=== PATIENT | female | born 1940 | race Hispanic/Latino ===

== ENCOUNTER 2016-12-22 16:20 | Emergency (ER) | payer MEDICAID, MEDICARE, OTHER ==
[2016-12-22 16:25] VITALS: RESP 18; TEMP 98.5
--- NOTE | 2016-12-22 17:08 | ED PDOC ---
Syncope/Near Syncope/Dizziness Time Seen by Provider: 12/22/16 16:53 Chief Complaint (Nursing): Dizziness/Lightheaded Chief Complaint (Provider): dizziness History Per: Patient, EMS Additional Complaint(s): 76-year-old female with history of diabetes and hypertension presents to emergency department with dizziness and nausea that started earlier today. Patient was sitting outside in the sun when she started to felt dizzy. Patient went into her home and splashed water on her face which made her feel better. She then drank a Pepsi and dizziness resolved. Patient states prior to drinking a Pepsi she only ate a buttered roll today. Upon arrival she feels slightly dizzy and slightly nauseous with mild headache. She denies any facial numbness, denies any numbness to upper or lower extremities. No chest pain, shortness of breath or abdominal pain. She denies vomiting. Past Medical History Reviewed: Historical Data, Nursing Documentation, Vital Signs Vital Signs: Last Vital Signs Temp 98.5 F 12/22/16 16:23 Pulse 100 H 12/22/16 16:23 Resp 18 12/22/16 16:23 BP 153/59 H 12/22/16 16:23 Pulse Ox 97 12/22/16 16:23 - Medical History PMH: COPD, Diabetes, HTN, Hypercholesterolemia - Surgical History Surgical History: Cholecystectomy, Hernia Repair Other surgeries: repair of AAA, vaginal hysterectomy - Family History Family History: States: No Known Family Hx - Social History Current smoker - smoking cessation education provided: Yes Alcohol: None Drugs: Denies - Home Medications Home Medications: Ambulatory Orders Medication Instructions Recorded Albuterol HFA [Ventolin HFA 90 1 puff INH PRN PRN 12/23/14 mcg/actuation (8 g)] Clopidogrel [Plavix] 75 mg PO DAILY 12/23/14 Cyclobenzaprine HCl [Flexeril] 10 mg PO TID PRN #15 tab 12/23/14 Fluticasone/Salmeterol 250/50 1 puff INH PRN PRN 12/23/14 [Advair Diskus 250/50] Gabapentin [Neurontin] 300 mg PO DAILY 12/23/14 Linagliptin [Tradjenta] 5 mg PO DAILY 12/23/14 Losartan/Hydrochlorothiazide 1 tab PO DAILY 12/23/14 [Losartan Potassium-Hydrochlorothiazide 12.5 M] MetFORMIN [glucoPHAGE] 1 tab PO DAILY 12/23/14 Rosuvastatin Calcium [Crestor] 10 mg PO DAILY 12/23/14 Sodium Bisulfate [Sodium Bisulfate 12/23/14 Monohydrate] traMADol [Ultram] 50 mg PO Q6 #16 tab 12/23/14 Moxifloxacin Hydrochloride [Avelox] 400 mg PO QAM #9 tab 06/17/15 Oxycodone HCl/Acetaminophen 1 tab PO Q6 PRN #10 tab 06/17/15 [Percocet 325 mg-5 mg] Prednisone 12 tab-cap PO QAM #15 tab 06/17/15 Promethazine/Phenyleph/Codeine 2 tsp PO Q6 PRN #0 syr 06/17/15 [Promethazine Vc W/ Codeine 120 ml] Oseltamivir [Tamiflu] 75 mg PO BID #10 cap 09/06/15 Azithromycin [Zithromax Z-Darek] 250 mg PO DAILY #4 tab 09/14/15 Amoxicillin/Potassium Clav 1 tab PO TID #30 tab 03/22/16 [Augmentin 500 mg-125 mg] Methylprednisolone [Medrol Dose 4 mg PO DAILY #21 tab 03/22/16 Pack (21 tabs)] - Allergies Allergies/Adverse Reactions: Allergies Allergy/AdvReac Type Severity Reaction Status Date / Time No Known Allergies Allergy Verified 12/22/16 16:22 Review of Systems ROS Statement: Except As Marked, All Systems Reviewed And Found Negative Constitutional: Negative for: Fever, Chills, Weakness Cardiovascular: Negative for: Chest Pain, Palpitations Respiratory: Positive for: Cough (chronic). Negative for: Shortness of Breath, Hemoptysis, SOB with Exertion, Wheezing Gastrointestinal: Positive for: Nausea. Negative for: Vomiting, Abdominal Pain , Diarrhea Genitourinary Female: Negative for: Dysuria Neurological: Positive for: Headache (slight), Dizziness. Negative for: Weakness, Numbness, Incoordination, Change in Speech, Confusion, Seizures, Altered Mental Status Physical Exam - Reviewed Nursing Documentation Reviewed: Yes Vital Signs Reviewed: Yes - Physical Exam Appears: Positive for: Well, Non-toxic, No Acute Distress Head Exam: Positive for: ATRAUMATIC, NORMAL INSPECTION Skin: Negative for: Rash Eye Exam: Positive for: Normal appearance, EOMI, PERRL Neck: Positive for: Normal Cardiovascular/Chest: Positive for: Regular Rate, Rhythm Respiratory: Positive for: Normal Breath Sounds. Negative for: Wheezing, Respiratory Distress Gastrointestinal/Abdominal: Positive for: Soft. Negative for: Tenderness, Distended, Guarding, Rebound Back: Negative for: L CVA Tenderness, R CVA Tenderness Extremity: Negative for: Pedal Edema Neurologic/Psych: Positive for: Alert, filenet p8 developer II-XII (grossly intact), Oriented. Negative for: Motor/Sensory Deficits, Aphasia, Facial Droop - Laboratory Results Result Diagrams: 12/22/16 17:10 12/22/16 17:10 - ECG Interpretation Of ECG: NSR 94 bpm, no acute finding, reviewed by PA and ED attending O2 Sat by Pulse Oximetry: 97 Pulse Ox Interpretation: Normal - Other Rad CXR X-Ray: Interpreted by Me, Viewed By Me X-Ray Interpretation: Atelectasis, scarring, no acute findings CT head X-Ray: Read By Radiologist X-Ray Interpretation: no acute finding Medical Decision Making Medical Decision Makin76 year old with dizziness and nausea x 1 day Plan: EKG CT head CXR CBC Trop CMP IVF IV zofran PO metformin - fingerstick upon arrival is 266. Patient is supposed to take metformin daily but she admits to not taking medication for the past 4 days. Repeat fingerstick after metformin dose - 130 Patient states the dizziness has resolved completely. She feels much better and would like to go home. Patient aware of all diagnostic testing results, all questions answered. Patient was advised take all meds every day and to not skip doses. She was also counseled regarding smoking cessation and need for follow up with PMD. Patient also aware she can RTED at any time if acutely worse. Disposition - Clinical Impression Clinical Impression: Hyperglycemia, Dizziness - Patient ED Disposition Is Patient to be Admitted: No Counseled Patient/Family Regarding: Studies Performed, Diagnosis, Need For Followup - Disposition Referrals: Shaik Murray MD [Family Provider] - Disposition: Routine/Home Disposition Time: 19:48 Condition: STABLE Additional Instructions: Take all of your medications daily, do not skip doses of any meds. Drink plenty of fluids. Stop smoking. Follow-up Saturday with your doctor or return any time if acutely worse. Instructions: Diabetic Hyperglycemia (ED), Dizziness (ED)
[2016-12-22] MEDS ORDERED: Sodium Chloride 0.9% 1,000 ML IV STA (17:09)
[2016-12-22 17:34] LABS: BASO # 0.1 K/uL (0.0-0.2); BASO % 0.8 % (0.0-2.0); EOS # 0.1 K/uL (0.0-0.7); EOS % 1.2 % (0.0-4.0); HEMATOCRIT 40.8 % (34.0-47.0); LYMPH # 2.5 K/uL (1.0-4.3); LYMPH % 24.5 % (20.0-40.0); MEAN CELL VOLUME 89.1 fl (81.0-99.0); MEAN CORPUSCULAR HEMOGLOBIN 29.6 pg (27.0-31.0); MEAN CORPUSCULAR HGB CONC 33.3 g/dL (33.0-37.0); MEAN PLATELET VOLUME 9.6 fl (7.2-11.7); MONO # 0.9 K/uL (0.0-0.8); MONO % 9.3 % (0.0-10.0); NEUT # 6.5 K/uL (1.8-7.0); NEUT % 64.2 % (50.0-75.0); RED CELL DISTRIBUTION WIDTH 13.6 % (11.5-14.5); WHITE BLOOD COUNT 10.1 K/uL (4.8-10.8)
[2016-12-22 17:44] LABS: ALB/GLOB RATIO 1.4 (1.0-2.1); ALKALINE PHOSPHATASE 70 U/L (38-126); ALT/SGPT 34 U/L (9-52); AST/SGOT 19 U/L (14-36); BILIRUBIN,TOTAL 0.5 mg/dl (0.2-1.3); BLOOD UREA NITROGEN 24 mg/dl (7-17); CALCIUM 9.7 mg/dL (8.4-10.2); CARBON DIOXIDE 25 mmol/L (22-30); CHLORIDE 103 mmol/L (98-107); GFR AFRICAN-AMERICAN > 60; GLUCOSE,RANDOM 239 mg/dL (65-105); POTASSIUM 3.8 MMOL/L (3.6-5.0); SODIUM 139 mmol/l (132-148); TOTAL PROTEIN 7.4 G/DL (6.3-8.2)
[2016-12-22 18:33] VITALS: BP 130/59; PULSE 81
[2016-12-22 19:06] LABS: RBC URINE 2 /hpf (0-3); URINE BACTERIA RARE (<OCC); URINE BILIRUBIN NEGATIVE (NEGATIVE); URINE BLOOD NEGATIVE (NEGATIVE); URINE COLOR YELLOW (YELLOW); URINE GLUCOSE (UA) NEG (Normal); URINE KETONE NEGATIVE (NEGATIVE); URINE LEUKOCYTE ESTERASE TRACE Leu/uL (Negative); URINE PROTEIN NEGATIVE (NEGATIVE); URINE UROBILINOGEN 0.2-1.0 mg/dL (0.2-1.0); WBC URINE 2 /hpf (0-5)
[2016-12-22 19:34] VITALS: O2SAT 97
--- NOTE | 2016-12-23 10:58 | RAD ---
HISTORY: clearance COMPARISON: Comparison chest 03/22/2016 FINDINGS: LUNGS: Hyperinflation ; rule out underlying COPD or emphysema. . Coarsened interstitial markings. Findings may represent sequela of reactive/inflammatory airway disease however element of underlying chronic interstitial disease suspected as well. . Mild bibasilar atelectasis and or scarring changes. Minor biapical pleural thickening. PLEURA: No significant pleural effusion identified, no pneumothorax apparent. CARDIOVASCULAR: Heart size upper limits of normal. OSSEOUS STRUCTURES: Multiple old healed left posterolateral rib fractures again noted VISUALIZED UPPER ABDOMEN: Normal. OTHER FINDINGS: None. IMPRESSION: Hyperinflation ; rule out underlying COPD or emphysema. . Coarsened interstitial markings. Findings may represent sequela of reactive/inflammatory airway disease however element of underlying chronic interstitial disease suspected as well. . . Mild bibasilar atelectasis and or scarring changes. Minor biapical pleural thickening.
--- NOTE | 2016-12-23 11:58 | CT ---
PROCEDURE: CT HEAD WITHOUT CONTRAST. HISTORY: dizziness COMPARISON: Comparison made with prior CT scan of the brain dated 06/30/2009. . TECHNIQUE: Axial computed tomography images were obtained through the head/brain without intravenous contrast. Radiation dose: Total exam DLP = 1035.61 mGy-cm. This CT exam was performed using one or more of the following dose reduction techniques: Automated exposure control, adjustment of the mA and/or kV according to patient size, and/or use of iterative reconstruction technique. FINDINGS: HEMORRHAGE: No acute parenchymal, subarachnoid or extra-axial hemorrhage. . Thin extra-axial density in the right frontal region best seen on axial series 4, image 26 probably represents a cortical surface draining vein. . BRAIN: Mild chronic periventricular white matter ischemic changes again seen extending slightly into the deep white matter both cerebral hemispheres. Mild generalized volume loss. No obvious parenchymal nor extra-axial mass or collection seen on this noncontrast study. Mild vascular calcifications are present. VENTRICLES: No evidence of obstructive hydrocephalus CALVARIUM: There are no acute calvarial fracture seen. PARANASAL SINUSES: Frontal sinuses are hypoplastic/ underpneumatized Remaining visualized paranasal sinuses are well-developed and currently well-aerated. No fluid levels seen to suggest acute sinusitis or hemorrhage. Mild mucosal thickening noted within a few ethmoid air cells. . MASTOID AIR CELLS: Unremarkable as visualized. No inflammatory changes. OTHER FINDINGS: Changes of right and probably left-sided cataract surgery. Clinical correlation recommended IMPRESSION: No acute intracranial hemorrhage. Mild chronic periventricular white matter ischemic changes. Mild generalized volume loss.
--- NOTE | 2016-12-25 10:38 | CARD ---
APPROVED REPORT EKG Measurement Heart [id number] <Conclusion> Normal sinus rhythm Possible Left atrial enlargement Septal infarct, age undetermined Abnormal ECG
== END 2016-12-22 20:02 | disposition home or self-care (01) ==
LOC: H.ER 16:20
DX: E11.65 Type 2 diabetes mellitus with hyperglycemia (principal); E78.00 Pure hypercholesterolemia, unspecified; I10 Essential (primary) hypertension; J44.9 Chronic obstructive pulmonary disease, unspecified; Z79.84 Long term (current) use of oral hypoglycemic drugs
CPT/HCPCS: 70450; 71010; 80053; 81003; 82948; 84484; 85025; 87086; 96374; 99285; J2405; J7040

== ENCOUNTER 2017-07-06 13:40 | Emergency (ER) | payer MEDICAID, OTHER ==
[2017-07-06 13:50] VITALS: RESP 18
[2017-07-06 14:53] LABS: BASO # 0.1 K/uL (0.0-0.2); BASO % 0.9 % (0.0-2.0); EOS # 0.2 K/uL (0.0-0.7); EOS % 1.9 % (0.0-4.0); HEMOGLOBIN 13.7 g/dL (12.0-16.0); LYMPH # 2.2 K/uL (1.0-4.3); MEAN CELL VOLUME 92.9 fl (81.0-99.0); MEAN CORPUSCULAR HEMOGLOBIN 30.3 pg (27.0-31.0); MEAN CORPUSCULAR HGB CONC 32.5 g/dL (33.0-37.0); MEAN PLATELET VOLUME 8.7 fl (7.2-11.7); MONO # 0.6 K/uL (0.0-0.8); MONO % 7.1 % (0.0-10.0); NEUT # 5.8 K/uL (1.8-7.0); NEUT % 65.1 % (50.0-75.0); RBC 4.53 Mil/uL (3.80-5.20); RED CELL DISTRIBUTION WIDTH 13.8 % (11.5-14.5); WHITE BLOOD COUNT 8.9 K/uL (4.8-10.8)
--- NOTE | 2017-07-06 14:58 | RAD ---
HISTORY: cough congestion COMPARISON: 12/22/2016 TECHNIQUE: Chest PA and lateral FINDINGS: LUNGS: Mild diffuse chronic interstitial change and hyperinflation are noted. These are unchanged. Chronic left rib fractures are appreciated and stable. No new infiltrate is seen. PLEURA: No significant pleural effusion identified. No pneumothorax apparent. CARDIOVASCULAR: Heart is unchanged in size. Aorta is also stable. OSSEOUS STRUCTURES: No significant abnormalities. VISUALIZED UPPER ABDOMEN: Normal. OTHER FINDINGS: None. IMPRESSION: No evidence of new alveolar infiltrate or CHF. Mild chronic emphysematous and interstitial changes.
[2017-07-06 15:01] LABS: BLOOD UREA NITROGEN 11 mg/dl (7-17); CALCIUM 9.6 mg/dL (8.4-10.2); GFR AFRICAN-AMERICAN > 60; GFR NON-AFRICAN AMERICAN > 60
--- NOTE | 2017-07-06 15:06 | ED PDOC ---
HPI: CCC, URI, Sore Throat Time Seen by Provider: 07/06/17 14:01 Chief Complaint (Nursing): Flu-like Symptoms Chief Complaint (Provider): Dry Cough, Congestion, Body Aches History Per: Patient History/Exam Limitations: no limitations Onset/Duration Of Symptoms: Days (x2) Current Symptoms Are (Timing): Still Present Location Of Pain: None Sick Contacts (Context): None Associated Symptoms: denies: Fever, Chills Ear Symptoms: Bilateral: None Additional Complaint(s): 77 year old female with a past medical history of hypertension chronic obstructive pulmonary disease, deep vein thrombosis and diabetes presents to the ED with dry cough, congestion and body aches x2 days. The patient reports that her cough is dry. She states that she also has been wheezing and has been using a nebulizer treatment (advere). Denies chest pain, shortness of breath, difficulty breathing, fever. The patient goes on to sate that she has chronic neuropathy for which she was prescribed tramadol. She states she is not compliant with her medication because it offers her no relief. PMD: Dr. Murray Past Medical History Reviewed: Historical Data, Nursing Documentation, Vital Signs, Unable To Obtain Vital Signs: Last Vital Signs Temp 97.4 F L 07/06/17 13:46 Pulse 87 07/06/17 13:46 Resp 18 07/06/17 13:46 BP 179/73 H 07/06/17 13:46 Pulse Ox 99 07/06/17 15:17 - Medical History PMH: Asthma, Bronchitis, COPD, Diabetes, HTN, Hypercholesterolemia - Surgical History Surgical History: Cholecystectomy, Hernia Repair Other surgeries: multiple abdominal surgeries - Family History Family History: States: Unknown Family Hx - Social History Current smoker - smoking cessation education provided: Yes (Heavy Smoker > 10 Cigarettes Daily) Ex-Smoker (has not smoked in the last 12 months): Yes Alcohol: None Drugs: Denies - Home Medications Home Medications: Ambulatory Orders Medication Instructions Recorded Clopidogrel [Plavix] 75 mg PO DAILY 12/23/14 Cyclobenzaprine HCl [Flexeril] 10 mg PO TID PRN #15 tab 12/23/14 Fluticasone/Salmeterol 250/50 1 puff INH PRN PRN 12/23/14 [Advair Diskus 250/50] Gabapentin [Neurontin] 300 mg PO DAILY 12/23/14 Linagliptin [Tradjenta] 5 mg PO DAILY 12/23/14 Losartan/Hydrochlorothiazide 1 tab PO DAILY 12/23/14 [Losartan Potassium-Hydrochlorothiazide 12.5 M] MetFORMIN [glucoPHAGE] 1 tab PO DAILY 12/23/14 Rosuvastatin Calcium [Crestor] 10 mg PO DAILY 12/23/14 Sodium Bisulfate [Sodium Bisulfate 12/23/14 Monohydrate] traMADol [Ultram] 50 mg PO Q6 #16 tab 12/23/14 Moxifloxacin Hydrochloride [Avelox] 400 mg PO QAM #9 tab 06/17/15 Oxycodone HCl/Acetaminophen 1 tab PO Q6 PRN #10 tab 06/17/15 [Percocet 325 mg-5 mg] Prednisone 12 tab-cap PO QAM #15 tab 06/17/15 Promethazine/Phenyleph/Codeine 2 tsp PO Q6 PRN #0 syr 06/17/15 [Promethazine Vc W/ Codeine 120 ml] Oseltamivir [Tamiflu] 75 mg PO BID #10 cap 09/06/15 Azithromycin [Zithromax Z-Darek] 250 mg PO DAILY #4 tab 09/14/15 Amoxicillin/Potassium Clav 1 tab PO TID #30 tab 03/22/16 [Augmentin 500 mg-125 mg] Methylprednisolone [Medrol Dose 4 mg PO DAILY #21 tab 03/22/16 Pack (21 tabs)] Albuterol HFA [Ventolin HFA 90 1 puff INH PRN PRN #1 inhaler 07/06/17 mcg/actuation (8 g)] oxyCODONE/Acetaminophen [Percocet 1 ea PO Q6 PRN #6 tab 07/06/17 5/325 mg Tab] - Allergies Allergies/Adverse Reactions: Allergies Allergy/AdvReac Type Severity Reaction Status Date / Time No Known Allergies Allergy Verified 12/22/16 16:22 Review of Systems ROS Statement: Except As Marked, All Systems Reviewed And Found Negative Constitutional: Positive for: Other (body aches). Negative for: Fever ENT: Positive for: Nose Congestion Cardiovascular: Positive for: Other (denies dificulty breathing). Negative for : Chest Pain Respiratory: Positive for: Cough (dry), Wheezing Physical Exam - Reviewed Nursing Documentation Reviewed: Yes Vital Signs Reviewed: Yes - Physical Exam Appears: Positive for: Non-toxic, No Acute Distress Head Exam: Positive for: ATRAUMATIC, NORMAL INSPECTION, NORMOCEPHALIC Skin: Positive for: Normal Color, Warm, Dry. Negative for: Rash Eye Exam: Positive for: Normal appearance, EOMI, PERRL. Negative for: Nystagmus ENT: Positive for: Normal ENT Inspection. Negative for: Nasal Congestion, Tonsillar Exudate, Tonsillar Swelling Neck: Positive for: Normal, Painless ROM, Supple Cardiovascular/Chest: Positive for: Regular Rate, Rhythm, Chest Non Tender. Negative for: Tachycardia Respiratory: Positive for: Normal Breath Sounds. Negative for: Wheezing, Respiratory Distress Gastrointestinal/Abdominal: Positive for: Normal Exam, Bowel Sounds, Soft. Negative for: Tenderness, Guarding, Rebound Back: Positive for: Normal Inspection. Negative for: L CVA Tenderness, R CVA Tenderness Extremity: Positive for: Normal ROM. Negative for: Tenderness, Deformity, Swelling Neurologic/Psych: Positive for: Alert, Oriented, Gait - Laboratory Results Result Diagrams: 07/06/17 14:40 07/06/17 14:40 - ECG O2 Sat by Pulse Oximetry: 99 (RA) Pulse Ox Interpretation: Normal Medical Decision Making Medical Decision Makin Initial Impression 77 y/o female presenting with bronchitis Differentials: COPD exacerbation r/o and Pneumonia and influenza A B Initial Plan: * BMP * CBC * CXR * Blood Culture * Influenza A B * Reevaluation [id number] Chest PA and lateral FINDINGS: LUNGS: Mild diffuse chronic interstitial change and hyperinflation are noted. These are unchanged. Chronic left rib fractures are appreciated and stable. No new infiltrate is seen. PLEURA: No significant pleural effusion identified. No pneumothorax apparent. CARDIOVASCULAR: Heart is unchanged in size. Aorta is also stable. OSSEOUS STRUCTURES: No significant abnormalities. VISUALIZED UPPER ABDOMEN: Normal. OTHER FINDINGS: None. IMPRESSION: No evidence of new alveolar infiltrate or CHF. Mild chronic emphysematous and interstitial changes. Documented by Gianna Morrison acting as a scribe for Haroldo Bella MD. All medical record entries made by the Scribe were at my direction and personally dictated by me. I have reviewed the chart and agree that the record accurately reflects my personal performance of the history, physical exam, medical decision making, and the department course for this patient. I have also personally directed, reviewed, and agree with the discharge instructions and disposition. Disposition - Clinical Impression Clinical Impression: Bronchitis, Leg pain - Patient ED Disposition Is Patient to be Admitted: No Doctor Will See Patient In The: Office Counseled Patient/Family Regarding: Studies Performed, Diagnosis, Need For Followup - Disposition Referrals: Melanie Calzada MD [Staff Provider] - Disposition: Routine/Home Disposition Time: 16:15 Condition: GOOD Additional Instructions: Follow up with your PCP in 2-3 days. Prescriptions: Albuterol HFA [Ventolin HFA 90 mcg/actuation (8 g)] 1 puff INH PRN PRN #1 inhaler PRN Reason: Wheezing oxyCODONE/Acetaminophen [Percocet 5/325 mg Tab] 1 ea PO Q6 PRN #6 tab PRN Reason: Pain, Severe (8-10) Instructions: Chronic Bronchitis (ED), Leg Pain (ED)
[2017-07-06 16:25] VITALS: BP 132/74; PULSE 83; TEMP 98.6; O2SAT 100
== END 2017-07-06 16:26 | disposition home or self-care (01) ==
LOC: H.ER 13:40
DX: J41.0 Simple chronic bronchitis (principal); E11.9 Type 2 diabetes mellitus without complications; E78.00 Pure hypercholesterolemia, unspecified; I10 Essential (primary) hypertension; Z79.84 Long term (current) use of oral hypoglycemic drugs

== ENCOUNTER 2017-09-15 07:14 | Emergency (ER) | payer MEDICAID, OTHER ==
[2017-09-15 07:42] VITALS: O2SAT 94
[2017-09-15] MEDS ORDERED: Promethazine/Cod 6.25mg-10mg/5ml Syr UD PO STA (08:17)
--- NOTE | 2017-09-15 09:18 | RAD ---
HISTORY: cough COMPARISON: 07/06/2017 TECHNIQUE: Chest PA and lateral FINDINGS: LUNGS: No new focal infiltrate. PLEURA: No significant pleural effusion identified. No pneumothorax apparent. CARDIOVASCULAR: Unchanged. OSSEOUS STRUCTURES: Left chronic rib fractures. VISUALIZED UPPER ABDOMEN: Normal. OTHER FINDINGS: None. IMPRESSION: No new focal infiltrate or CHF.
--- NOTE | 2017-09-15 10:20 | ED PDOC ---
HPI: Influenza Time Seen by Provider: 09/15/17 08:00 Chief Complaint: Cough, Cold, Congestion Chief Complaint (Provider): cough and sore throat History Per: Patient Exam Limitations: no limitations Symptoms include: sore throat, cough. denies: fever Additional complaint(s):: 77 year old female with a past medical history of COPD and hypertension presents to the ED complaining of a productive cough and sore throat onset two days ago. Patient also reports some wheezing, relieved by taking her Albuterol treatments and Advair pump at home. Denies any fever, chills, shortness of breath, or chest pain. PMD: Shaik Murray Past Medical History Reviewed: Historical Data, Nursing Documentation, Vital Signs Vital Signs: Last Vital Signs Temp 98.2 F 09/15/17 07:40 Pulse 88 09/15/17 07:40 Resp 16 09/15/17 07:40 BP 153/64 H 09/15/17 07:40 Pulse Ox 94 L 09/15/17 07:40 - Medical History PMH: Asthma, Bronchitis, COPD, Diabetes, HTN, Hypercholesterolemia - Surgical History Surgical History: Cholecystectomy, Hernia Repair - Family History Family History: States: Unknown Family Hx - Social History Current smoker - smoking cessation education provided: Yes Alcohol: None Drugs: Denies - Home Medications Home Medications: Ambulatory Orders Medication Instructions Recorded Clopidogrel [Plavix] 75 mg PO DAILY 12/23/14 Cyclobenzaprine HCl [Flexeril] 10 mg PO TID PRN #15 tab 12/23/14 Fluticasone/Salmeterol 250/50 1 puff INH PRN PRN 12/23/14 [Advair Diskus 250/50] Gabapentin [Neurontin] 300 mg PO DAILY 12/23/14 Linagliptin [Tradjenta] 5 mg PO DAILY 12/23/14 Losartan/Hydrochlorothiazide 1 tab PO DAILY 12/23/14 [Losartan Potassium-Hydrochlorothiazide 12.5 M] MetFORMIN [glucoPHAGE] 1 tab PO DAILY 12/23/14 Rosuvastatin Calcium [Crestor] 10 mg PO DAILY 12/23/14 Sodium Bisulfate [Sodium Bisulfate 12/23/14 Monohydrate] traMADol [Ultram] 50 mg PO Q6 #16 tab 12/23/14 Moxifloxacin Hydrochloride [Avelox] 400 mg PO QAM #9 tab 06/17/15 Oxycodone HCl/Acetaminophen 1 tab PO Q6 PRN #10 tab 06/17/15 [Percocet 325 mg-5 mg] Prednisone 12 tab-cap PO QAM #15 tab 06/17/15 Promethazine/Phenyleph/Codeine 2 tsp PO Q6 PRN #0 syr 06/17/15 [Promethazine Vc W/ Codeine 120 ml] Oseltamivir [Tamiflu] 75 mg PO BID #10 cap 09/06/15 Azithromycin [Zithromax Z-Darek] 250 mg PO DAILY #4 tab 09/14/15 Amoxicillin/Potassium Clav 1 tab PO TID #30 tab 03/22/16 [Augmentin 500 mg-125 mg] Methylprednisolone [Medrol Dose 4 mg PO DAILY #21 tab 03/22/16 Pack (21 tabs)] Albuterol HFA [Ventolin HFA 90 1 puff INH PRN PRN #1 inhaler 07/06/17 mcg/actuation (8 g)] Azithromycin [Z-Darek] 250 mg PO ASDIR #6 tab 07/06/17 oxyCODONE/Acetaminophen [Percocet 1 ea PO Q6 PRN #6 tab 07/06/17 5/325 mg Tab] Azithromycin [Z-Darek] 250 mg PO ASDIR #6 tab 09/15/17 Prednisone [Deltasone] 60 mg PO DAILY 5 Days tablet 09/15/17 Promethazine/Codeine 5 ml PO Q6 PRN #100 ml 09/15/17 [Phenergan/Codeine Oral Syrup] - Allergies Allergies/Adverse Reactions: Allergies Allergy/AdvReac Type Severity Reaction Status Date / Time No Known Allergies Allergy Verified 12/22/16 16:22 Review of Systems ROS Statement: Except As Marked, All Systems Reviewed And Found Negative Constitutional: Negative for: Fever, Chills ENT: Positive for: Throat Pain Cardiovascular: Negative for: Chest Pain Respiratory: Positive for: Cough. Negative for: Shortness of Breath Physical Exam - Reviewed Nursing Documentation Reviewed: Yes Vital Signs Reviewed: Yes - Physical Exam Appears: Positive for: Non-toxic, No Acute Distress Head Exam: Positive for: ATRAUMATIC, NORMAL INSPECTION, NORMOCEPHALIC Skin: Positive for: Normal Color, Warm, Dry Eye Exam: Positive for: EOMI, Normal appearance, PERRL ENT: Positive for: Normal ENT Inspection, Pharynx Is (clear). Negative for: Tonsillar Exudate, Tonsillar Swelling Neck: Positive for: Normal, Painless ROM, Supple. Negative for: Decreased ROM, Limited ROM Cardiovascular/Chest: Positive for: Regular Rate, Rhythm. Negative for: Murmur Respiratory: Positive for: Normal Breath Sounds. Negative for: Decreased Breath Sounds, Accessory Muscle Use, Respiratory Distress Gastrointestinal/Abdominal: Positive for: Normal Exam, Bowel Sounds, Soft. Negative for: Tenderness, Guarding, Rebound Back: Positive for: Normal Inspection. Negative for: L CVA Tenderness, R CVA Tenderness Extremity: Positive for: Normal ROM. Negative for: Tenderness, Pedal Edema, Deformity Neurologic/Psych: Positive for: Alert, Oriented (x3), Gait (steady) Medical Decision Making Medical Decision Making: Initial Impression/Differential Diagnosis: Bronchitis, COPD exacerbation, rule out pneumonia Time: 08:16 Initial Plan: --Chest two views (PA/LAT) [RAD] --Promethazine/Codeine 5ml PO --Throat culture --Rapid Strep Group A Antigen --Reevaluation Time: :16 CHEST X-RAY FINDINGS: LUNGS: No new focal infiltrate. PLEURA: No significant pleural effusion identified. No pneumothorax apparent. CARDIOVASCULAR: Unchanged. OSSEOUS STRUCTURES: Left chronic rib fractures. VISUALIZED UPPER ABDOMEN: Normal. OTHER FINDINGS: None. IMPRESSION: No new focal infiltrate or CHF. Clinical Impression: COPD with acute bronchitis Upon provider reevaluation patient is medically stable, and requires no further treatment in the ED at this time. Patient will be discharged with Z-Darek 205mg, Deltasone 60mg, and Phenergan/Codeine 5ml PO. Counseling was provided and all questions were answered regarding diagnosis and need for follow up with PMD. There is agreement to discharge plan. Return if symptoms persist or worsen. Scribe Attestation: Documented by June Bermudez, acting as a scribe for Haroldo Bella MD Provider Scribe Attestation: All medical record entries made by the Scribe were at my direction and personally dictated by me. I have reviewed the chart and agree that the record accurately reflects my personal performance of the history, physical exam, medical decision making, and the department course for this patient. I have also personally directed, reviewed, and agree with the discharge instructions and disposition. - ECG O2 Sat by Pulse Oximetry: 94 (RA) Pulse Ox Interpretation: Normal Disposition - Clinical Impression Clinical Impression: COPD with acute bronchitis - Patient ED Disposition Is Patient to be Admitted: No Counseled Patient/Family Regarding: Studies Performed, Diagnosis, Need For Followup, Rx Given - Disposition Referrals: Shaik Murray MD [Family Provider] - Disposition: Routine/Home Disposition Time: 10:00 Condition: GOOD Additional Instructions: Take your medications as instructed. Follow up with your PCP in 2-3 days. Prescriptions: Azithromycin [Z-Darek] 250 mg PO ASDIR #6 tab Prednisone [Deltasone] 60 mg PO DAILY 5 Days tablet Promethazine/Codeine [Phenergan/Codeine Oral Syrup] 5 ml PO Q6 PRN #100 ml PRN Reason: Cough Instructions: Exacerbation of COPD (DC) Forms: [id number] (Upper Sorbian) - POA Present On Arrival: None
[2017-09-15 10:32] VITALS: BP 142/79; PULSE 81; RESP 14; TEMP 98
== END 2017-09-15 10:29 | disposition home or self-care (01) ==
LOC: H.ER 07:14
DX: J44.0 Chronic obstructive pulmonary disease with (acute) lower respiratory infection (principal); E11.9 Type 2 diabetes mellitus without complications; F17.200 Nicotine dependence, unspecified, uncomplicated; I10 Essential (primary) hypertension; J20.9 Acute bronchitis, unspecified; Z79.84 Long term (current) use of oral hypoglycemic drugs; E78.00 Pure hypercholesterolemia, unspecified

== ENCOUNTER 2018-02-15 10:01 | Emergency (ER) | payer OTHER ==
[2018-02-15 10:09] VITALS: RESP 20
--- NOTE | 2018-02-15 12:17 | ED PDOC ---
HPI: General Adult Time Seen by Provider: 02/15/18 11:01 Chief Complaint (Nursing): Upper Extremity Problem/Injury Chief Complaint (Provider): Chest Discomfort, Rash History Per: Patient History/Exam Limitations: no limitations Onset/Duration Of Symptoms: Days (x2.5) Current Symptoms Are (Timing): Still Present Additional Complaint(s): 78-year-old female, with a past medical history of COPD, HTN, and diabetes, presenting for evaluation of x2.5 days of discomfort beneath right breast and itchy rash under bilateral breasts. Patient states rash is worse under right breast, than the left. She denies any shortness of breath, chest pain, fever, chills, trauma, injury, leg pain/swelling, recent travel, nausea, or vomiting. Patient also reports taking blood thinners (unknown name) to prevent blood clots. Of note: Patients BP was elevated upon arrival to ED, but patient states she took her BP medications 20 minutes prior to arrival. Past Medical History Reviewed: Historical Data, Nursing Documentation, Vital Signs Vital Signs: Last Vital Signs Temp 98 F 02/15/18 14:15 Pulse 76 02/15/18 14:15 Resp 20 02/15/18 14:15 BP 120/70 02/15/18 14:15 Pulse Ox 98 02/15/18 14:15 - Medical History PMH: Arthritis, Asthma, Bronchitis, COPD, Diabetes, HTN, Hypercholesterolemia Denies: Chronic Kidney Disease - Surgical History Surgical History: Cholecystectomy, Hernia Repair - Family History Family History: States: Unknown Family Hx - Home Medications Home Medications: Ambulatory Orders Medication Instructions Recorded Clopidogrel [Plavix] 75 mg PO DAILY 12/23/14 Cyclobenzaprine HCl [Flexeril] 10 mg PO TID PRN #15 tab 12/23/14 Fluticasone/Salmeterol 250/50 1 puff INH PRN PRN 12/23/14 [Advair Diskus 250/50] Gabapentin [Neurontin] 300 mg PO DAILY 12/23/14 Linagliptin [Tradjenta] 5 mg PO DAILY 12/23/14 Losartan/Hydrochlorothiazide 1 tab PO DAILY 12/23/14 [Losartan Potassium-Hydrochlorothiazide 12.5 M] MetFORMIN [glucoPHAGE] 1 tab PO DAILY 12/23/14 Rosuvastatin Calcium [Crestor] 10 mg PO DAILY 06/25/15 Sodium Bisulfate [Sodium Bisulfate 12/23/14 Monohydrate] traMADol [Ultram] 50 mg PO Q6 #16 tab 12/23/14 Moxifloxacin Hydrochloride [Avelox] 400 mg PO QAM #9 tab 06/17/15 Oxycodone HCl/Acetaminophen 1 tab PO Q6 PRN #10 tab 06/17/15 [Percocet 325 mg-5 mg] Prednisone 12 tab-cap PO QAM #15 tab 06/17/15 Promethazine/Phenyleph/Codeine 2 tsp PO Q6 PRN #0 syr 06/17/15 [Promethazine Vc W/ Codeine 120 ml] Oseltamivir [Tamiflu] 75 mg PO BID #10 cap 09/06/15 Azithromycin [Zithromax Z-Darek] 250 mg PO DAILY #4 tab 09/14/15 Amoxicillin/Potassium Clav 1 tab PO TID #30 tab 03/22/16 [Augmentin 500 mg-125 mg] Methylprednisolone [Medrol Dose 4 mg PO DAILY #21 tab 03/22/16 Pack (21 tabs)] Albuterol HFA [Ventolin HFA 90 1 puff INH PRN PRN #1 inhaler 07/06/17 mcg/actuation (8 g)] Azithromycin [Z-Darek] 250 mg PO ASDIR #6 tab 07/06/17 oxyCODONE/Acetaminophen [Percocet 1 ea PO Q6 PRN #6 tab 07/06/17 5/325 mg Tab] Azithromycin [Z-Darek] 250 mg PO ASDIR #6 tab 09/15/17 Prednisone [Deltasone] 60 mg PO DAILY 5 Days tablet 09/15/17 Promethazine/Codeine 5 ml PO Q6 PRN #100 ml 09/15/17 [Phenergan/Codeine Oral Syrup] Clotrimazole 1% Cream [Lotrimin 1%] 30 applic EXT BID #1 tube 02/15/18 - Allergies Allergies/Adverse Reactions: Allergies Allergy/AdvReac Type Severity Reaction Status Date / Time No Known Allergies Allergy Verified 02/15/18 10:20 Review of Systems ROS Statement: Except As Marked, All Systems Reviewed And Found Negative Constitutional: Negative for: Fever, Chills Cardiovascular: Negative for: Chest Pain Respiratory: Positive for: Cough (+chronic cough due to COPD. ). Negative for: Shortness of Breath Gastrointestinal: Negative for: Nausea, Vomiting Musculoskeletal: Positive for: Other (right sided chest discomfort) Skin: Positive for: Rash (rash under bilateral breasts) Physical Exam - Reviewed Nursing Documentation Reviewed: Yes Vital Signs Reviewed: Yes - Physical Exam Comments: GENERAL APPEARANCE: Patient is awake, alert, oriented x 3, in mild painful distress. SKIN: (+) erythematous oval shaped flat lesions with central clearing under bilateral breasts; (+) mild tenderness to skin under the right breast, (-) surrounding erythema, (-) edema, (-) discharge, (-) other rash. EYES: (-) conjunctival pallor, (-) scleral icterus. ENMT: Mucous membranes moist. NECK: (-) tenderness, (-) stiffness, (-) lymphadenopathy. CHEST AND RESPIRATORY: (-) rales, (-) rhonchi, (-) wheezes; breath sounds equal bilaterally. HEART AND CARDIOVASCULAR: (+) systolic murmur, regular rate. ABDOMEN AND GI: (-) distention. Bowel sounds active; (-) tenderness, (-) guarding, (-) rebound, (-) palpable masses, (-) CVA tenderness. BACK : (-) tenderness. EXTREMITIES: (-) deformity, (-) edema, (+) distal pulses. NEURO AND PSYCH: Mental status as above; (-) focal findings. - ECG O2 Sat by Pulse Oximetry: 96 (RA) Pulse Ox Interpretation: Normal Medical Decision Making Medical Decision Making: Impression: Tinea intertrigo, consider herpes zoster Plan: -EKG -CXR -Reevaluation CXR : NAD, as read by BRADY EKG : NSR at 79 bpm, LVH, no acute ST changes, as read by BRADY Repeat VS P 76 R 20 BP 120/70 O2sat 98%RA On re-evaluation, patient reports no chest pain or SOB. On exam, patient remains AAOx3, in no acute distress. Diagnostic results d/w the patient. Advised to follow up with primary care physician in 1-2 days without fail. Advised to take medication as prescribed and to follow up with pmd regarding murmur heard on exam. Return to the emergency room at any time for any new or worsening symptoms. Patient states she fully agrees with and understands discharge instructions. States that she agrees with the plan and disposition. Verbalized and repeated discharge instructions and plan. I have given the patient opportunity to ask any additional questions. Scribe Attestation: Documented by Reinaldo Blood, acting as a scribe for Angela Barnes PA-C. Provider Scribe Attestation: All medical record entries made by the Scribe were at my direction and personally dictated by me. I have reviewed the chart and agree that the record accurately reflects my personal performance of the history, physical exam, medical decision making, and the department course for this patient. I have also personally directed, reviewed, and agree with the discharge instructions and disposition. Disposition - Clinical Impression Clinical Impression: Tinea corporis - Patient ED Disposition Is Patient to be Admitted: No Counseled Patient/Family Regarding: Studies Performed, Diagnosis, Need For Followup, Rx Given - Disposition Disposition: Routine/Home Disposition Time: 13:00 Condition: STABLE Additional Instructions: Thank you for letting us take care of you today. You were treated for tinea infection. The emergency medical care you received today was directed towards the acute presenting symptoms. If you were prescribed any medication, please fill it and give as directed. It may take several days for your symptoms to resolve. Return to the Emergency Department at any time if symptoms worsen, do not improve, or if any other problems arise. Please contact your doctor in 2 days for re-evaluation and follow up. Bring any paperwork you were given at discharge with you along with any medications to your follow up visit. Our treatment cannot replace ongoing medical care by a primary care provider (PCP) outside of the emergency department. Thank you for allowing the [facility] team to be part of your care today. Prescriptions: Clotrimazole 1% Cream [Lotrimin 1%] 30 applic EXT BID #1 tube Instructions: Ringworm (DC) Forms: [employer] (Amharic) - PA / CHAIN SALES CONSULTANT / Resident Statement MD/DO has reviewed & agrees with the documentation as recorded.
--- NOTE | 2018-02-15 13:23 | RAD ---
Date of service: 02/15/2018 HISTORY: pain COMPARISON: 09/15/2017 TECHNIQUE: Chest PA and lateral FINDINGS: LUNGS: Pulmonary hyperinflation consistent with emphysema. PLEURA: No significant pleural effusion identified. No pneumothorax apparent. CARDIOVASCULAR: Normal. OSSEOUS STRUCTURES: No significant abnormalities. VISUALIZED UPPER ABDOMEN: Normal. OTHER FINDINGS: None. IMPRESSION: No infiltrate. Probable emphysema.
[2018-02-15 14:33] VITALS: BP 120/70; PULSE 76; TEMP 98
[2018-02-15 14:45] VITALS: O2SAT 96
--- NOTE | 2018-02-16 09:31 | CARD ---
APPROVED REPORT Date of service: 02/15/2018 <Conclusion> Normal sinus rhythm Left ventricular hypertrophy with repolarization abnormality Cannot rule out Septal infarct, age undetermined Abnormal ECG
== END 2018-02-15 14:37 | disposition home or self-care (01) ==
LOC: H.ER 10:01
DX: B35.4 Tinea corporis (principal); E11.9 Type 2 diabetes mellitus without complications; E78.00 Pure hypercholesterolemia, unspecified; I10 Essential (primary) hypertension; J44.9 Chronic obstructive pulmonary disease, unspecified; Z79.84 Long term (current) use of oral hypoglycemic drugs

== ENCOUNTER 2018-04-04 13:29 | Emergency (ER) | payer OTHER ==
[2018-04-04 13:56] VITALS: TEMP 98.6
--- NOTE | 2018-04-04 15:23 | ED PDOC ---
HPI: General Adult Chief Complaint (Provider): ABD PAIN History Per: Patient (78 Y/O FEMALE HERE WITH LOWER ABDOMINAL PAIN DESCRIBED A PRESSURE SINCE LAST NIGHT ASSOCIATED WITH NAUSEA. NOTES RIGHT SHOULDER PRESSURE WELL. DENIES ANY CHEST PAIN/SOB. NOTES DIZZINESS WITH SYMPTOMS.) <Marie Johnson - Last Filed: 04/04/18 17:37> <Dhara Collins - Last Filed: 04/05/18 21:04> Time Seen by Provider: 04/04/18 13:37 Chief Complaint (Nursing): Abdominal Pain Past Medical History Reviewed: Historical Data, Nursing Documentation, Vital Signs Vital Signs: Last Vital Signs Temp 98.6 F 04/04/18 13:54 Pulse 92 H 04/04/18 13:54 Resp 16 04/04/18 13:54 BP 165/72 H 04/04/18 13:54 Pulse Ox 97 04/04/18 13:54 - Medical History PMH: Arthritis, Asthma, Bronchitis, COPD, Diabetes, HTN, Hypercholesterolemia Denies: Chronic Kidney Disease - Surgical History Surgical History: Cholecystectomy, Hernia Repair - Family History Family History: States: Unknown Family Hx <Marie Johnson - Last Filed: 04/04/18 17:37> Vital Signs: Last Vital Signs Temp 98.6 F 04/04/18 17:23 Pulse 74 04/04/18 17:23 Resp 19 04/04/18 17:23 BP 132/74 04/04/18 17:23 Pulse Ox 97 04/04/18 17:39 <Dhara Collins - Last Filed: 04/05/18 21:04> - Home Medications Home Medications: Ambulatory Orders Medication Instructions Recorded Cyclobenzaprine HCl [Flexeril] 10 mg PO TID PRN #15 tab 12/23/14 Fluticasone/Salmeterol 250/50 1 puff INH PRN PRN 12/23/14 [Advair Diskus 250/50] Linagliptin [Tradjenta] 5 mg PO DAILY 12/23/14 Losartan/Hydrochlorothiazide 1 tab PO DAILY 12/23/14 [Losartan Potassium-Hydrochlorothiazide 12.5 M] RX: Clopidogrel [Plavix] 75 mg PO DAILY 12/23/14 RX: Gabapentin [Neurontin] 300 mg PO DAILY 12/23/14 RX: MetFORMIN [glucoPHAGE] 1 tab PO DAILY 12/23/14 RX: Sodium Bisulfate [Sodium 12/23/14 Bisulfate Monohydrate] Rosuvastatin Calcium [Crestor] 10 mg PO DAILY 12/23/14 traMADol [Ultram] 50 mg PO Q6 #16 tab 12/23/14 Moxifloxacin Hydrochloride [Avelox] 400 mg PO QAM #9 tab 06/17/15 Oxycodone HCl/Acetaminophen 1 tab PO Q6 PRN #10 tab 06/17/15 [Percocet 325 mg-5 mg] Promethazine/Phenyleph/Codeine 2 tsp PO Q6 PRN #0 syr 06/17/15 [Promethazine Vc W/ Codeine 120 ml] RX: Prednisone 12 tab-cap PO QAM #15 tab 06/17/15 Oseltamivir [Tamiflu] 75 mg PO BID #10 cap 09/06/15 Azithromycin [Zithromax Z-Darek] 250 mg PO DAILY #4 tab 09/14/15 Amoxicillin/Potassium Clav 1 tab PO TID #30 tab 03/22/16 [Augmentin 500 mg-125 mg] Methylprednisolone [Medrol Dose 4 mg PO DAILY #21 tab 03/22/16 Pack (21 tabs)] RX: Albuterol HFA [Ventolin HFA 90 1 puff INH PRN PRN #1 inhaler 07/06/17 mcg/actuation (8 g)] RX: Azithromycin [Z-Daerk] 250 mg PO ASDIR #6 tab 07/06/17 oxyCODONE/Acetaminophen [Percocet 1 ea PO Q6 PRN #6 tab 07/06/17 5/325 mg Tab] RX: Azithromycin [Z-Darek] 250 mg PO ASDIR #6 tab 09/15/17 RX: Prednisone [Deltasone] 60 mg PO DAILY 5 Days tablet 09/15/17 RX: Promethazine/Codeine 5 ml PO Q6 PRN #100 ml 09/15/17 [Phenergan/Codeine Oral Syrup] RX: Clotrimazole 1% Cream 30 applic EXT BID #1 tube 02/15/18 [Lotrimin 1%] Famotidine [Pepcid] 20 mg PO BID #10 tab 04/04/18 - Allergies Allergies/Adverse Reactions: Allergies Allergy/AdvReac Type Severity Reaction Status Date / Time No Known Allergies Allergy Verified 04/04/18 13:54 Review of Systems ROS Statement: Except As Marked, All Systems Reviewed And Found Negative <Marie Johnson - Last Filed: 04/04/18 17:37> Physical Exam - Reviewed Nursing Documentation Reviewed: Yes Vital Signs Reviewed: Yes - Physical Exam Appears: Positive for: Well, Non-toxic, No Acute Distress Head Exam: Positive for: ATRAUMATIC, NORMAL INSPECTION, NORMOCEPHALIC Skin: Positive for: Normal Color, Warm, DRY Eye Exam: Positive for: EOMI, Normal appearance, PERRL ENT: Positive for: Normal ENT Inspection Neck: Positive for: Normal, Painless ROM Cardiovascular/Chest: Positive for: Regular Rate, Rhythm Respiratory: Positive for: CNT, Normal Breath Sounds Gastrointestinal/Abdominal: Positive for: Normal Exam, Soft Back: Positive for: Normal Inspection Extremity: Positive for: Normal ROM Neurologic/Psych: Positive for: Alert, Oriented <Marie Johnson - Last Filed: 04/04/18 17:37> - Laboratory Results Result Diagrams: 04/04/18 16:03 04/04/18 16:03 - ECG O2 Sat by Pulse Oximetry: 97 - Progress ED Course And Treament: UPON RE-EXAMINATION, PATIENT STATES SHE HAS PERSISTENT ABD PAIN WITH COUGHING. ON EXAM, NOTED WITH MILD SUPRAPUBIC TENDERNESS. HER UA IS NEGATIVE, RE COMMEND CT OF ABD/PELVIS TO EVALUATE FOR DIVERTICULITIS PATIENT REFUSES AT THIS TIME. STATES SHE WOULD LIKE TO GO HOME. AMA PAPERWORK REVIEWED AND SIGNED WITH HER. WILL WRITE RX FOR PEPCID PATIENT NOTES NAUSEA/BELCHING ONE OF PRIMARY COMPLAINTS. <Marie Johnson - Last Filed: 04/04/18 17:37> - Laboratory Results Result Diagrams: 04/04/18 16:03 04/04/18 16:03 <Dhara Collins - Last Filed: 04/05/18 21:04> Disposition - Patient ED Disposition Is Patient to be Admitted: No - Disposition Disposition: Against Medical Advice Disposition Time: 17:39 <Marie Johnson - Last Filed: 04/04/18 17:37> <Dhara Collins - Last Filed: 04/05/18 21:04> - Clinical Impression Clinical Impression: Abdominal pain in female - Disposition Referrals: Thang Verma MD [Primary Care Provider] - Condition: FAIR Prescriptions: Famotidine [Pepcid] 20 mg PO BID #10 tab - PA / EMPLOYMENT CLERK / Resident Statement / has reviewed & agrees with the documentation as recorded. <Dhara Collins - Last Filed: 04/05/18 21:04>
[2018-04-04 16:10] LABS: BASO # 0.1 K/uL (0.0-0.2); BASO % 0.6 % (0.0-2.0); EOS # 0.1 K/uL (0.0-0.7); EOS % 0.9 % (0.0-4.0); HEMOGLOBIN 14.2 g/dL (12.0-16.0); LYMPH # 2.5 K/uL (1.0-4.3); MEAN CELL VOLUME 90.6 fl (81.0-99.0); MEAN CORPUSCULAR HEMOGLOBIN 30.4 pg (27.0-31.0); MEAN CORPUSCULAR HGB CONC 33.6 g/dL (33.0-37.0); MEAN PLATELET VOLUME 10.1 fl (7.2-11.7); MONO # 1.1 K/uL (0.0-0.8); MONO % 7.9 % (0.0-10.0); NEUT # 9.9 K/uL (1.8-7.0); NEUT % 72.6 % (50.0-75.0); NRBC % 0.1 % (0.0-0.0); RBC 4.68 Mil/uL (3.80-5.20); RED CELL DISTRIBUTION WIDTH 13.8 % (11.5-14.5); WHITE BLOOD COUNT 13.7 K/uL (4.8-10.8)
--- NOTE | 2018-04-04 16:13 | RAD ---
Date of service: 04/04/2018 HISTORY: ROUTINE COMPARISON: 02/15/2018 FINDINGS: LUNGS: No active pulmonary disease. PLEURA: No significant pleural effusion identified, no pneumothorax apparent. CARDIOVASCULAR: No radiographic findings to suggest acute or significant cardiovascular disease. OSSEOUS STRUCTURES: No significant abnormalities. Healed posterior lateral left rib fractures unchanged. VISUALIZED UPPER ABDOMEN: Normal. OTHER FINDINGS: None. IMPRESSION: No active disease. No significant interval change compared to the prior examination(s).
[2018-04-04 16:15] LABS: SQUAMOUS EPITHIAL < 1 /hpf (0-5); URINE BILIRUBIN NEGATIVE (NEGATIVE); URINE BLOOD NEGATIVE (NEGATIVE); URINE CLARITY CLEAR (Clear); URINE COLOR STRAW (YELLOW); URINE GLUCOSE (UA) NEG (Normal); URINE LEUKOCYTE ESTERASE NEG Leu/uL (Negative); URINE PROTEIN NEGATIVE (NEGATIVE); URINE UROBILINOGEN 0.2-1.0 mg/dL (0.2-1.0)
[2018-04-04 16:21] LABS: BLOOD UREA NITROGEN 16 mg/dl (7-17); CALCIUM 9.6 mg/dL (8.4-10.2); GFR NON-AFRICAN AMERICAN > 60
[2018-04-04 16:23] LABS: ALB/GLOB RATIO 1.1 (1.0-2.1); ALBUMIN 4.1 g/dL (3.5-5.0); ALT/SGPT 16 U/L (9-52); AST/SGOT 26 U/L (14-36)
[2018-04-04 16:34] LABS: B-TYPE NATRIURETIC PEPTIDE 1230 pg/ml (0-900)
[2018-04-04 17:24] VITALS: BP 132/74; PULSE 74; RESP 19
[2018-04-04 17:39] VITALS: O2SAT 97
--- NOTE | 2018-04-06 07:50 | CARD ---
APPROVED REPORT Date of service: 04/04/2018 EKG Measurement Heart [id number] <Conclusion> Normal sinus rhythm Possible Left atrial enlargement Left ventricular hypertrophy with repolarization abnormality Abnormal ECG
== END 2018-04-04 17:45 | disposition left against medical advice (07) ==
LOC: H.ER 13:29
DX: R10.2 Pelvic and perineal pain (principal); I10 Essential (primary) hypertension; E11.9 Type 2 diabetes mellitus without complications

== ENCOUNTER 2018-04-10 15:20 | Emergency (ER) | payer OTHER ==
[2018-04-10] MEDS ORDERED: Iohexol 240 (50 ml) PO ONE (16:43)
[2018-04-10] MEDS ORDERED: Iohexol 240 (50 ml) ONE (16:47)
--- NOTE | 2018-04-10 16:47 | ED PDOC ---
History of Present Illness History of Present Illness: 78-year-old female, with a past medical history of COPD, HTN, and diabetes, presenting for evaluation of continued suprapubic pain when coughing. Patient evaluated in this ED recently for same. Signed out AMA before CT scan. Pt Patient was diagnosed with UTI and prescribed Cipro, which she is still taking. HPI: Influenza Time Seen by Provider: 04/10/18 16:07 Chief Complaint: Cough, Cold, Congestion Past Medical History Reviewed: Nursing Documentation, Vital Signs Vital Signs: Last Vital Signs Temp 98.0 F 04/10/18 15:59 Pulse 87 04/10/18 15:59 Resp 16 04/10/18 15:59 BP 192/83 H 04/10/18 15:59 Pulse Ox 97 04/10/18 15:59 - Medical History PMH: Arthritis, Asthma, Bronchitis, COPD, Diabetes, HTN, Hypercholesterolemia Denies: Chronic Kidney Disease - Surgical History Surgical History: Cholecystectomy, Hernia Repair - Family History Family History: States: Unknown Family Hx - Living Arrangements Living Arrangements: With Family - Social History Current smoker - smoking cessation education provided: Yes Alcohol: None Drugs: Denies - Home Medications Home Medications: Ambulatory Orders Medication Instructions Recorded Clopidogrel [Plavix] 75 mg PO DAILY 12/23/14 Cyclobenzaprine HCl [Flexeril] 10 mg PO TID PRN #15 tab 12/23/14 Fluticasone/Salmeterol 250/50 1 puff INH PRN PRN 12/23/14 [Advair Diskus 250/50] Gabapentin [Neurontin] 300 mg PO DAILY 12/23/14 Linagliptin [Tradjenta] 5 mg PO DAILY 12/23/14 Losartan/Hydrochlorothiazide 1 tab PO DAILY 12/23/14 [Losartan Potassium-Hydrochlorothiazide 12.5 M] MetFORMIN [glucoPHAGE] 1 tab PO DAILY 12/23/14 Rosuvastatin Calcium [Crestor] 10 mg PO DAILY 12/23/14 Sodium Bisulfate [Sodium Bisulfate 12/23/14 Monohydrate] traMADol [Ultram] 50 mg PO Q6 #16 tab 12/23/14 Moxifloxacin Hydrochloride [Avelox] 400 mg PO QAM #9 tab 06/17/15 Oxycodone HCl/Acetaminophen 1 tab PO Q6 PRN #10 tab 06/17/15 [Percocet 325 mg-5 mg] Prednisone 12 tab-cap PO QAM #15 tab 06/17/15 Promethazine/Phenyleph/Codeine 2 tsp PO Q6 PRN #0 syr 06/17/15 [Promethazine Vc W/ Codeine 120 ml] Oseltamivir [Tamiflu] 75 mg PO BID #10 cap 09/06/15 Azithromycin [Zithromax Z-Darek] 250 mg PO DAILY #4 tab 09/14/15 Amoxicillin/Potassium Clav 1 tab PO TID #30 tab 03/22/16 [Augmentin 500 mg-125 mg] Methylprednisolone [Medrol Dose 4 mg PO DAILY #21 tab 03/22/16 Pack (21 tabs)] Albuterol HFA [Ventolin HFA 90 1 puff INH PRN PRN #1 inhaler 07/06/17 mcg/actuation (8 g)] Azithromycin [Z-Darek] 250 mg PO ASDIR #6 tab 07/06/17 oxyCODONE/Acetaminophen [Percocet 1 ea PO Q6 PRN #6 tab 07/06/17 5/325 mg Tab] Azithromycin [Z-Darek] 250 mg PO ASDIR #6 tab 09/15/17 Prednisone [Deltasone] 60 mg PO DAILY 5 Days tablet 09/15/17 Promethazine/Codeine 5 ml PO Q6 PRN #100 ml 09/15/17 [Phenergan/Codeine Oral Syrup] Clotrimazole 1% Cream [Lotrimin 1%] 30 applic EXT BID #1 tube 02/15/18 Famotidine [Pepcid] 20 mg PO BID #10 tab 04/04/18 Ciprofloxacin [Cipro] 500 mg PO BID #6 tab 04/06/18 - Allergies Allergies/Adverse Reactions: Allergies Allergy/AdvReac Type Severity Reaction Status Date / Time No Known Allergies Allergy Verified 04/10/18 15:59 Review of Systems ROS Statement: Except As Marked, All Systems Reviewed And Found Negative Respiratory: Positive for: Cough Gastrointestinal: Positive for: Abdominal Pain Physical Exam - Reviewed Nursing Documentation Reviewed: Yes Vital Signs Reviewed: Yes - Physical Exam Appears: Positive for: Well, Non-toxic, No Acute Distress Head Exam: Positive for: ATRAUMATIC, NORMAL INSPECTION, NORMOCEPHALIC Skin: Positive for: Normal Color, Warm, DRY Eye Exam: Positive for: EOMI, Normal appearance, PERRL ENT: Positive for: Normal ENT Inspection Neck: Positive for: Normal, Painless ROM Cardiovascular/Chest: Positive for: Regular Rate, Rhythm Respiratory: Positive for: CNT, Normal Breath Sounds Gastrointestinal/Abdominal: Positive for: Normal Exam, Soft. Negative for: Tenderness Back: Positive for: Normal Inspection Extremity: Positive for: Normal ROM Neurologic/Psych: Positive for: Alert, Oriented Medical Decision Making Medical Decision Making: IV access established and treatment initiated with IVF Case endorsed to ZENAIDA Cordero at 1999 pending diagnostic review and re-eval - Laboratory Results Result Diagrams: 04/10/18 17:00 04/10/18 17:00 - ECG O2 Sat by Pulse Oximetry: 97 Disposition - Clinical Impression Clinical Impression: UTI (urinary tract infection) - Patient ED Disposition Is Patient to be Admitted: Transfer of Care - Disposition Disposition: Transfer of Care Disposition Time: 19:39 Condition: STABLE Forms: [employer] (Citizen [place])
[2018-04-10 17:10] LABS: BASO # 0.1 K/uL (0.0-0.2); BASO % 1.4 % (0.0-2.0); EOS # 0.2 K/uL (0.0-0.7); EOS % 2.3 % (0.0-4.0); HEMOGLOBIN 14.9 g/dL (12.0-16.0); LYMPH # 2.8 K/uL (1.0-4.3); LYMPH % 26.6 % (20.0-40.0); MEAN CELL VOLUME 90.7 fl (81.0-99.0); MEAN CORPUSCULAR HEMOGLOBIN 30.3 pg (27.0-31.0); MEAN CORPUSCULAR HGB CONC 33.4 g/dL (33.0-37.0); MEAN PLATELET VOLUME 9.6 fl (7.2-11.7); MONO # 0.9 K/uL (0.0-0.8); MONO % 8.7 % (0.0-10.0); NEUT # 6.4 K/uL (1.8-7.0); NRBC % 0.1 % (0.0-0.0); RBC 4.91 Mil/uL (3.80-5.20); WHITE BLOOD COUNT 10.4 K/uL (4.8-10.8)
[2018-04-10 17:24] LABS: ALB/GLOB RATIO 1.1 (1.0-2.1); ALBUMIN 4.5 g/dL (3.5-5.0); ALT/SGPT 23 U/L (9-52); AST/SGOT 34 U/L (14-36); BLOOD UREA NITROGEN 20 mg/dl (7-17); CALCIUM 9.4 mg/dL (8.4-10.2); GFR NON-AFRICAN AMERICAN > 60; LIPASE 35 U/L (23-300)
[2018-04-10 17:33] LABS: SQUAMOUS EPITHIAL 6 /hpf (0-5); URINE BACTERIA RARE (<OCC); URINE BILIRUBIN NEGATIVE (NEGATIVE); URINE BLOOD NEGATIVE (NEGATIVE); URINE CALCIUM OXALATE CRYSTALS FEW /hpf (<OCC); URINE CLARITY CLEAR (Clear); URINE COLOR YELLOW (YELLOW); URINE GLUCOSE (UA) NEG (Normal); URINE LEUKOCYTE ESTERASE NEG Leu/uL (Negative); URINE PROTEIN 30 mg/dL (NEGATIVE); URINE UROBILINOGEN 0.2-1.0 mg/dL (0.2-1.0)
[2018-04-10] MEDS ORDERED: Sodium Chloride 0.9% 50 ML IV ONE (17:57)
[2018-04-10] MEDS ORDERED: Iohexol 300 100 ML IJ ONE (17:57)
--- NOTE | 2018-04-10 20:47 | ED PDOC ---
- Laboratory Results Result Diagrams: 04/10/18 17:00 04/10/18 17:00 - ECG O2 Sat by Pulse Oximetry: 97 (RA) Pulse Ox Interpretation: Normal Medical Decision Making Medical Decision Making: Case endorsed to hand sign writer, Manav Cordero PA-C, at 1999 due to shift change. Pertinent details reviewed. Patient pending CT results, re-evaluation, and further disposition. Labs reviewed. Patient with elevated BP reading in ED at this time, however states that she has not taken her HTN medications yet today. Patient reports she is normally complaint with her medications and denies any chest pain, SOB, dyspnea, leg swelling, headache, N/V, weakness/numbness, visual changes. 2044 CT Abdomen/Pelvis reviewed, report follows IMPRESSION: 1. Status post cholecystectomy. 2. The pancreas is diffusely atrophic and fatty replaced. 3. Right renal mass, compatible with renal cell carcinoma until proven otherwise. Consultation with urology service is recommended. 4. Several small cortical cysts in both kidneys. 5. Severe enteritis. Infectious and inflammatory etiologies are considered. 6. Constipation. 7. Small hiatal hernia. 8. Status post complete hysterectomy. Electronically signed on Apr 10, 2018 7:15:06 PM EDT by: Brandon Hinojosa M.D., [place] Certified By [facility] Fellowship Trained MRI and CT Specialist 2049 On re-evaluation, patient resting comfortably and requesting to go home at this time. Patient remains AAOx3, in no acute distress. Lungs clear to auscultation, cardiac RRR, abdomen soft, non-tender, repeat neuro exam shows no focal findings. Lab/Diagnostic results d/w the patient in great detail. Diagnosis of UTI, renal mass, elevated BP reading d/w the patient. Strict follow up with urology and PMD stressed to patient. Smoking cessation advised. Based on history, exam and diagnostic results, plan will be for outpatient follow up. Patient instructed to follow-up with pmd / referral provided / the clinic in 1- 2 days without fail. Advised to take medication as prescribed. Return to the emergency room at any time for any new or worsening symptoms. Patient states she fully agrees with and understands discharge instructions. States that she agrees with the plan and disposition. Verbalized and repeated discharge instructions and plan. I have given the patient opportunity to ask any additional questions. Disposition Counseled Patient/Family Regarding: Studies Performed, Diagnosis, Need For Followup, Smoking Cessation - Clinical Impression Clinical Impression: UTI (urinary tract infection), Renal mass, right, Elevated blood pressure reading - POA Present On Arrival: None - Disposition Referrals: Gaurav Gan MD [Medical Doctor] - Disposition: Routine/Home Disposition Time: 21:00 Condition: FAIR Additional Instructions: FOLLOW UP WITH PMD AND/OR UROLOGY WITHIN 1-2 DAYS WITHOUT FAIL. CONTINUE ANTIBIOTICS FROM PRIOR ED VISIT. The emergency medical care you received today was directed at your acute symptoms. If you were prescribed any medication, please fill it and take as directed. It may take several days for your symptoms to resolve. Return to the Emergency Department if your symptoms worsen, do not improve, or if you have any other problems. Please contact your doctor in 2 days for re-evaluation and follow up / or call one of the physicians/clinics you have been referred to that are listed on the Patient Visit Information form that is included in your discharge packet. Bring any paperwork you were given at discharge with you along with any medications you are taking to your follow up visit. Our treatment cannot replace ongoing medical care by a primary care provider (PCP) outside of the emergency department. Instructions: Hypertension (ED), Urinary Tract Infections in Adults, High Blood Pressure (DC) Forms: [employer] (Brazilian) Print Language: JAPANESE Results - Lab Results Lab Results: 04/10/18 04/10/18 04/10/18 17:00 17:00 17:00 WBC 10.4 RBC 4.91 Hgb 14.9 Hct 44.5 MCV 90.7 MCH 30.3 MCHC 33.4 RDW 14.0 Plt Count 253 MPV 9.6 Neut % (Auto) 61.0 Lymph % (Auto) 26.6 [place] % (Auto) 8.7 Eos % (Auto) 2.3 Baso % (Auto) 1.4 Neut # (Auto) 6.4 Lymph # (Auto) 2.8 [place] # (Auto) 0.9 H Eos # (Auto) 0.2 Baso # (Auto) 0.1 Sodium 137 Potassium 4.9 Chloride 103 Carbon Dioxide 23 Anion Gap 16 BUN 20 H Creatinine 0.5 L Est GFR ( Amer) > 60 Est GFR (Non-Af Amer) > 60 Random Glucose 175 H Calcium 9.4 Total Bilirubin 0.8 AST 34 ALT 23 Alkaline Phosphatase 78 Total Protein 8.6 H Albumin 4.5 Globulin 4.1 H Albumin/Globulin Ratio 1.1 Lipase 35 Urine Color Yellow Urine Clarity Clear Urine pH 5.0 Ur Specific Thornton 1.029 Urine Protein 30 Urine Glucose (UA) Neg Urine Ketones Negative Urine Blood Negative Urine Nitrate Negative Urine Bilirubin Negative Urine Urobilinogen 0.2-1.0 Ur Leukocyte Esterase Neg Urine RBC (Auto) 2 Urine Microscopic WBC 1 Ur Squamous Epith Cells 6 H Calcium Oxalate Crystal Few H Urine Bacteria Rare
[2018-04-10 21:23] VITALS: BP 185/85; PULSE 85; RESP 18; TEMP 98.8; O2SAT 96
--- NOTE | 2018-04-11 10:38 | CT ---
Date of service: 04/10/2018 PROCEDURE: CT Abdomen and Pelvis with contrast HISTORY: RLQ pain COMPARISON: 08/11/2009. CT abdomen and pelvis. TECHNIQUE: Intravenous contrast dose: 90 cc Omnipaque 300. Radiation dose: Total exam DLP = 45590 mGy-cm. This CT exam was performed using one or more of the following dose reduction techniques: Automated exposure control, adjustment of the mA and/or kV according to patient size, and/or use of iterative reconstruction technique. FINDINGS: LOWER THORAX: Unremarkable. LIVER: Unremarkable. No gross lesion or ductal dilatation. GALLBLADDER AND BILE DUCTS: Status post cholecystectomy. No abnormality is seen in the gallbladder fossa. PANCREAS: Unremarkable. No gross lesion or ductal dilatation. SPLEEN: Unremarkable. ADRENALS: Unremarkable. No mass. KIDNEYS AND URETERS: Suspicious mass upper pole of the right kidney measuring 3.1 x 3.2 cm. This represents a new finding compared to the prior study. Findings are highly suspicious for primary renal cell carcinoma. Multiple simple renal cortical cysts bilaterally. VASCULATURE: Unremarkable. No aortic aneurysm. BOWEL: Constipation without fecal impaction or obstruction. APPENDIX: Normal appendix. PERITONEUM: Unremarkable. No free fluid. No free air. LYMPH NODES: Unremarkable. No enlarged lymph nodes. BLADDER: Unremarkable. REPRODUCTIVE: Unremarkable. BONES: No acute fracture. OTHER FINDINGS: None. IMPRESSION: New mass upper pole right kidney 3.1 x 3.2 cm and highly suspicious for primary right renal neoplasm. Additional benign and/or incidental findings described above. Concordant results (preliminary interpretation) provided by [facility]. Procedure Completed: 20:24. Preliminary Report: Dictated and Authenticated: 19:15 Final Interpretation: 10:34. April 11, 2018
== END 2018-04-10 21:15 | disposition home or self-care (01) ==
LOC: H.ER 15:20
DX: N39.0 Urinary tract infection, site not specified (principal); N28.89 Other specified disorders of kidney and ureter; I10 Essential (primary) hypertension; F17.200 Nicotine dependence, unspecified, uncomplicated; J44.9 Chronic obstructive pulmonary disease, unspecified; Z79.84 Long term (current) use of oral hypoglycemic drugs
CPT/HCPCS: 74177; 80053; 81003; 83690; 85025; 99283; Q9966; Q9967

== ENCOUNTER 2018-09-28 09:07 | Emergency (ER) | payer OTHER ==
[2018-09-28 09:10] VITALS: BMI 26.0
[2018-09-28 09:11] VITALS: PULSE 82; TEMP 98
--- NOTE | 2018-09-28 09:37 | ED PDOC ---
HPI: Abdomen Time Seen by Provider: 09/28/18 09:33 Chief Complaint (Nursing): Abdominal Pain Chief Complaint (Provider): Abdominal Pain History Per: Patient History/Exam Limitations: no limitations Onset/Duration Of Symptoms: Days (x4) Additional Complaint(s): 78 y/o female with a HTN, Hypercholesterolemia, COPD, Asthma, Bronchitis, CKD and DM presents to the ED for evaluation of right sided rib-cage pain, onset 4 days ago. Patient reports pain began after she was straining herself to have a bowel movement when she felt a pop. Patient notes pain worsens with movement and deep breaths. Of note, patient has a history of constipation since removing her right kidney. Patient additionally reports of having a history of fracturing her right ribs in the past from a fall. Patient states she took half a percocet yesterday with minimal relief of symptoms. Otherwise, patient denies any nausea, vomiting and shortness of breath. PMD: Thang Verma Past Medical History Reviewed: Historical Data, Nursing Documentation, Vital Signs Vital Signs: Last Vital Signs Temp 98.0 F 09/28/18 09:10 Pulse 82 09/28/18 09:10 Resp 18 09/28/18 09:10 BP 196/62 H 09/28/18 09:10 Pulse Ox 99 09/28/18 09:10 - Medical History PMH: Arthritis, Asthma, Bronchitis, COPD, Diabetes, Fractures, Gall Bladder Disease, HTN, Hypercholesterolemia, Chronic Kidney Disease - Surgical History Surgical History: Cholecystectomy, Hernia Repair - Family History Family History: States: Unknown Family Hx - Home Medications Home Medications: Ambulatory Orders Medication Instructions Recorded Clopidogrel [Plavix] 75 mg PO DAILY 12/23/14 Fluticasone/Salmeterol 250/50 1 puff INH BID 12/23/14 [Advair Diskus 250/50] Linagliptin [Tradjenta] 5 mg PO DAILY 12/23/14 Losartan/Hydrochlorothiazide 1 tab PO DAILY 12/23/14 [Losartan Potassium-Hydrochlorothiazide 12.5 M] MetFORMIN [glucoPHAGE] 1 tab PO DAILY 12/23/14 Rosuvastatin Calcium [Crestor] 10 mg PO DAILY 12/23/14 Albuterol HFA [Ventolin HFA 90 1 puff INH PRN PRN #1 inhaler 07/06/17 mcg/actuation (8 g)] ALPRAZolam [Xanax] 0.25 mg PO DAILY 06/12/18 traMADol [Ultram] 50 mg PO Q6H PRN #12 tab 09/28/18 - Allergies Allergies/Adverse Reactions: Allergies Allergy/AdvReac Type Severity Reaction Status Date / Time No Known Allergies Allergy Verified 06/16/18 11:12 Review of Systems ROS Statement: Except As Marked, All Systems Reviewed And Found Negative Cardiovascular: Positive for: Other (right rib cage pain) Respiratory: Negative for: Shortness of Breath Gastrointestinal: Negative for: Nausea, Vomiting Physical Exam - Reviewed Nursing Documentation Reviewed: Yes Vital Signs Reviewed: Yes - Physical Exam Appears: Positive for: Uncomfortable Head Exam: Positive for: ATRAUMATIC Skin: Positive for: Normal Color, Warm, Dry Eye Exam: Positive for: Normal appearance, EOMI, PERRL Neck: Positive for: Normal, Painless ROM, Supple Cardiovascular/Chest: Positive for: Regular Rate, Rhythm, Other (Tenderness to palpation under the right breast above the 10th/11th rib. No bruising noted.). Negative for: Murmur Respiratory: Positive for: Normal Breath Sounds. Negative for: Respiratory Distress Extremity: Positive for: Normal ROM Neurological/Psych: Positive for: Awake, Alert, Other (SPEAKING FULL SENTENCES) - ECG ECG: Positive for: Viewed By Me ECG Rhythm: Positive for: Sinus Rhythm, Premature Ventricular Contraction Interpretation Of Abn EKG: viewed by me and Dr. fatima compared to ekg done in July. no acute findings O2 Sat by Pulse Oximetry: 99 (RA) Pulse Ox Interpretation: Normal - Radiology X-Ray: Viewed By Sd X-Ray Interpretation: Fracture (neg for fracture ) Medical Decision Making Medical Decision Making: Time: 931 Plan: -- Ribs and Chest RT XR -- Tramadol 50 mg PO 10:54: Pt reports pain has improved and is feeling hungry. EKG ( no acute changes compared to EKG from July) and rib series reviewed with Dr. Fatima. No signs of fracture noted. Clinical findings discussed with patient and family present. Pt is stable for d/c home with family. Rx given for Tramadol as needed, as patient cannot take NSAIDS. Pt reports she has medication at home to help with constipation. Pt also educated on breathing exercises to do at home while awake and use of pillow to splint if need to cough to avoid further injury. Pt verbalizes understanding. 16:04 CR right Ribs and AP Chest, 4 View. CLINICAL HISTORY: Pain COMPARISON: None provided. FINDINGS: LUNGS: Minimal linear atelectasis or scarring is seen in the lateral left lung base. Otherwise, the lungs appear essentially clear. PLEURAL SPACES: No evidence of pneumothorax. No pleural effusion. HEART: Heart size is within normal limits. Atheromatous plaquing is noted within the aortic arch and descending thoracic aorta. MEDIASTINUM: The mediastinal silhouette is within normal limits. BONES: There is diffuse osteoporosis. No acute displaced rib fracture is evident. There are old healed fractures seen in the posterolateral aspect of left ribs 5-9. IMPRESSION: 1. No evidence of acute rib fracture. No pneumothorax seen. 2. Linear atelectasis or scarring in the lateral left lung base. 3. Old healed fractures in the posterior lateral aspect of left ribs 5-9. 4. No acute cardiopulmonary pathology is evident. Scribe Attestation: Documented by Aishwarya Layne, acting as a scribe Nohelia Mosley APN. Provider Scribe Attestation: All medical record entries made by the Scribe were at my direction and personally dictated by me. I have reviewed the chart and agree that the record accurately reflects my personal performance of the history, physical exam, medical decision making, and the department course for this patient. I have also personally directed, reviewed, and agree with the discharge instructions and disposition. Disposition - Clinical Impression Clinical Impression: Rib contusion - Patient ED Disposition Is Patient to be Admitted: No Counseled Patient/Family Regarding: Diagnosis, Rx Given - Disposition Disposition: Routine/Home Disposition Time: 10:54 Condition: IMPROVED Prescriptions: traMADol [Ultram] 50 mg PO Q6H PRN #12 tab PRN Reason: Pain, Moderate (4-7) Instructions: Contusion (DC) Print Language: SETS[place] - POA Present On Arrival: None
[2018-09-28 11:07] VITALS: BP 162/70; RESP 17
[2018-09-28 11:09] VITALS: O2SAT 99
--- NOTE | 2018-09-28 14:38 | RAD ---
Date of service: Comparison made with chest radiograph dated 04/04/2018. 09/28/2018 PROCEDURE: Radiographs of the Chest and Right Ribs. HISTORY: rib pain COMPARISON: None available. TECHNIQUE: Frontal radiograph of the chest and multiple oblique radiographs of the right ribs were obtained. 4 views obtained. FINDINGS: RIGHT RIBS: No evidence of acute displaced right-sided rib fracture. Old healed fracture deformities of several left posterolateral ribs unchanged. LUNGS: Mild left basilar atelectasis and or scarring with minimal right basilar atelectasis PLEURA: No pneumothorax or pleural fluid. CARDIOVASCULAR: Normal cardiac size. No pulmonary vascular congestion. Moderate aortic atherosclerotic calcification present OTHER FINDINGS: None. IMPRESSION: No evidence of acute displaced right-sided rib fracture. Redemonstrated are several old healed left posterolateral rib fracture deformities. Mild left basilar atelectasis and or scarring. Minimal right basilar atelectasis. If symptoms persist or occult fracture suspected clinically recommend follow-up CT scan of the chest
--- NOTE | 2018-09-29 09:12 | CARD ---
APPROVED REPORT Date of service: 09/28/2018 EKG Measurement Heart [id number] <Conclusion> Sinus rhythm with occasional premature ventricular complexes Nonspecific ST and T wave abnormality Prolonged QT Abnormal ECG
== END 2018-09-28 11:05 | disposition home or self-care (01) ==
LOC: H.ER 09:07
DX: S20.219A Contusion of unspecified front wall of thorax, initial encounter (principal); J44.9 Chronic obstructive pulmonary disease, unspecified; N18.9 Chronic kidney disease, unspecified; E11.9 Type 2 diabetes mellitus without complications; Z79.84 Long term (current) use of oral hypoglycemic drugs; I12.9 Hypertensive chronic kidney disease with stage 1 through stage 4 chronic kidney disease, or unspecified chronic kidney disease